=== PATIENT | male | born 1970 | race Caucasian/White ===

== ENCOUNTER 2017-05-18 23:02 | Emergency (ER) | payer OTHER ==
[2017-05-19 01:06] VITALS: BP 140/84
--- NOTE | 2017-05-19 12:19 | CR ---
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 RIGHT KNEE: Three views of the right knee revealed no evidence of a fracture, dislocation, or other definite bone or joint abnormality. [facility]
--- NOTE | 2017-05-19 12:19 | CR ---
INDICATION: Trauma to anterior proximal tibia. RIGHT TIBIA AND FIBULA: Frontal and lateral views of the right tibia and fibula revealed no evidence of an acute fracture, dislocation, or other definite bone or joint abnormality. [facility]
--- NOTE | 2017-05-19 12:20 | CR ---
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 Pain top of shoulder. RIGHT SHOULDER: Four views of the right shoulder were obtained and revealed minimal degenerative changes at the AC joint and very minimally at the glenohumeral joint. A fracture, dislocation, or other definite bone or joint abnormality was not identified. MTDD
--- NOTE | 2017-05-21 11:03 | ER ---
DATE SEEN: 05/18/2017 TIME SEEN: The patient was seen at 2300 hours. 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 No previous knee injury. He twisted his knee. Also, mild knee discomfort with the twist. The patient is overweight. He has lost 20 pounds in the last 2 months. He is working on his weight. 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 PAST MEDICAL HISTORY: He denies hypertension or other serious illnesses or surgery. ALLERGIES: Penicillin. MEDICATIONS: None. REVIEW OF SYSTEMS: Negative, except for noted above. PHYSICAL EXAMINATION: VITAL SIGNS: Blood pressure 146/94, heart rate 100, respirations 18, oxygen saturation 97%, and temperature is 36.8 degrees centigrade. GENERAL: The patient has a vest on. ABDOMEN: Nontender. No guarding. No abdominal discomfort. MUSCULOSKELETAL: Upper extremities negative. Lower extremities; right knee, no effusion, no pain to joint lines medially or laterally. He can flex and bend the knee, but it is painful for him, just below at the proximal tibia. The patient is overweight. DIAGNOSTIC STUDIES: X-ray does not reveal a fracture of the tibia. There is no indentation of the bone. No effusion to the knee. The knee has normal appearance. ASSESSMENT: Contusion, right anterior tibia. PLAN: Eight tablets of Vicodin prescribed. He is to use that for breakthrough pain if not taken care of by a 1000 mg of Tylenol, 5/325 mg of Vicodin. Follow up with his doctor on 05/20/2017. Gradually and progressively increase his activity as tolerated. Workmen's comp form filled out. Ice to his lower extremities. DIAGNOSES: 1. Contusion, right superior-anterior tibia without fracture. 2. Mild pain in the knee secondary to strain. 3. Obesity. 4. The patient is losing weight, working on his weight, and has lost 20 pounds in the last 2 months. /[id number] LS/MODL
== END 2017-05-19 00:35 | disposition home or self-care (01) ==
LOC: FB.ED 23:02
DX: S80.11XA Contusion of right lower leg, initial encounter (principal); X50.1XXA Overexertion from prolonged static or awkward postures, initial encounter; Y93.89 Activity, other specified; Y99.0 Civilian activity done for income or pay; Z88.0 Allergy status to penicillin
CPT/HCPCS: 73030-RT; 73562-RT; 73590-RT; 99283

== ENCOUNTER 2020-01-11 16:41 | Emergency (ER) | payer BC, OTHER ==
[2020-01-11] MEDS ORDERED: Aspirin 81 MG Tab.Chew PO ONE (17:05)
[2020-01-11] MEDS: Nitroglycerin 0.4 MG Tab.SL SL PRN ×2 (17:13→17:22)
[2020-01-11] MEDS ORDERED: Alum Hydroxide/Mag Hydroxide 15 ML, Lidocaine 2% 15 ML PO ONE ×2 (17:54)
--- NOTE | 2020-01-11 18:07 | EDM.PDOC ---
ED HPI GENERAL MEDICAL PROBLEM - General Chief Complaint: Chest Pain Stated Complaint: CHEST PAIN Time Seen by Provider: 01/11/20 16:45 Source of Information: Reports: Patient History Limitations: Reports: No Limitations - History of Present Illness INITIAL COMMENTS - FREE TEXT/NARRATIVE: Patient presented to the ED because of chest pain. The pain is sharp,2/10, over the left anterior chest. He had the ist episode last night at about 2030 and it lasted for 20 minutes. There is no nausea/vomiting/dyspnea. There is no associated fever/chills, cough or cold symptoms. He is otherwise healthy except for an PADMINI. - Related Data Allergies Allergy/AdvReac Type Severity Reaction Status Date / Time Penicillins Allergy Unknown unknown Verified 01/11/20 16:57 Home Meds: Home Meds Omeprazole 20 mg PO DAILY #30 tab 01/11/20 [Rx] Past Medical History - Past Health History Medical/Surgical History: Denies Medical/Surgical History HEENT History: Reports: Other (See Below) Other HEENT History: [place] teeth extraction. Respiratory History: Reports: Sleep Apnea Endocrine/Metabolic History: Reports: Obesity/BMI 30+ - Past Surgical History Musculoskeletal Surgical History: Reports: Other (See Below) Other Musculoskeletal Surgeries/Procedures:: Back surgery in 1987. Social & Family History - Family History Family Medical History: Noncontributory - Tobacco Use Tobacco Use Status *Q: Never Tobacco User - Caffeine Use Caffeine Use: Reports: Coffee - Recreational Drug Use Recreational Drug Use: No ED ROS GENERAL - Review of Systems Review Of Systems: See Below Constitutional: Reports: No Symptoms HEENT: Reports: No Symptoms Respiratory: Reports: No Symptoms Cardiovascular: Reports: Chest Pain Endocrine: Reports: No Symptoms GI/Abdominal: Reports: No Symptoms : Reports: No Symptoms Musculoskeletal: Reports: No Symptoms Skin: Reports: No Symptoms Neurological: Reports: No Symptoms Psychiatric: Reports: No Symptoms Hematologic/Lymphatic: Reports: No Symptoms ED EXAM, GENERAL - Physical Exam Exam: See Below Exam Limited By: No Limitations General Appearance: Alert, No Apparent Distress Ears: Normal External Exam, Normal Canal Nose: Normal Inspection, Normal Mucosa Throat/Mouth: Normal Inspection, Normal Lips, Normal Teeth Head: Atraumatic, Normocephalic Neck: Normal Inspection, Supple, Non-Tender Respiratory/Chest: No Respiratory Distress, Lungs Clear, Normal Breath Sounds Cardiovascular: Normal Peripheral Pulses, Regular Rate, Rhythm, No Edema, No Gallop, No JVD GI/Abdominal: Normal Bowel Sounds, Soft, Non-Tender Back Exam: Normal Inspection, Full Range of Motion Extremities: Normal Inspection, Normal Range of Motion, Non-Tender Neurological: Alert, Oriented, CN II-XII Intact Psychiatric: Normal Affect, Normal Mood Skin Exam: Warm Course - Vital Signs Text/Narrative:: Labs/EKG/CXR result was discussed with patient ASA 32 mg po x1 NTG 0.4 mg X2 GI cocktail Last Recorded V/S: Last Vital Signs Temp 36.8 C 01/11/20 16:41 Pulse 71 01/11/20 18:44 Resp 20 01/11/20 18:44 BP 133/79 01/11/20 18:44 Pulse Ox 98 01/11/20 18:44 - Orders/Labs/Meds Orders: Active Orders 24 hr Category Date Time Status EKG 12 Lead [EK] Routine Ther 01/11/20 17:04 Ordered Labs: Laboratory Tests 01/11/20 01/11/20 01/11/20 Range/Units 16:55 16:55 16:55 WBC 11.5 (4.5-12.0) X10-3/uL RBC 4.80 (4.30-5.75) x10(6)uL Hgb 14.9 (13.5-17.8) g/dL Hct 44.1 (30.0-51.3) % MCV 91.8 (80-96) fL MCH 31.0 (27.7-33.6) pg MCHC 33.8 (32.2-35.4) g/dL RDW 12.0 (11.5-15.5) % Plt Count 260 (125-369) X10(3)uL MPV 9.5 (7.4-10.4) fL Neut % (Auto) 69.3 (46-82) % Lymph % (Auto) 20.1 (13-37) % [place] % (Auto) 9.5 (4-12) % Eos % (Auto) 1 (1.0-5.0) % Baso % (Auto) 0 (0-2) % Neut # (Auto) 8.0 (1.6-8.3) # Lymph # (Auto) 2.3 (0.6-5.0) # [place] # (Auto) 1.1 (0.0-1.3) # Eos # (Auto) 0.1 (0.0-0.8) # Baso # (Auto) 0.0 (0.0-0.2) # PT 10.4 (9.0-11.1) sec INR 0.96 L (1.00-1.24) APTT 22.7 L (24.4-33.2) SECONDS D-Dimer, Quantitative (0.0-0.59) mg/LFEU Sodium 139 (135-145) mmol/L Potassium 4.2 (3.5-5.3) mmol/L Chloride 102 (100-110) mmol/L Carbon Dioxide 27 (21-32) mmol/L BUN 17 (7-18) mg/dL Creatinine 1.0 (0.70-1.30) mg/dL Est Cr Clr Drug Dosing 95.92 mL/min Estimated GFR (MDRD) > 60 (>60) BUN/Creatinine Ratio 17.0 (9-20) Glucose 107 (80-116) mg/dL Calcium 9.2 (8.6-10.2) mg/dL Total Bilirubin 0.5 (0.1-1.3) mg/dL AST 23 (5-25) IU/L ALT 34 (12-36) U/L Alkaline Phosphatase 52 L (56-112) IU/L Troponin I (4.0-60.3) pg/mL Total Protein 7.7 (6.0-8.0) g/dL Albumin 3.8 (3.5-5.2) g/dL Globulin 3.9 g/dL Albumin/Globulin Ratio 1.0 01/11/20 01/11/20 01/11/20 Range/Units 16:55 16:55 18:40 WBC (4.5-12.0) X10-3/uL RBC (4.30-5.75) x10(6)uL Hgb (13.5-17.8) g/dL Hct (30.0-51.3) % MCV (80-96) fL MCH (27.7-33.6) pg MCHC (32.2-35.4) g/dL RDW (11.5-15.5) % Plt Count (125-369) X10(3)uL MPV (7.4-10.4) fL Neut % (Auto) (46-82) % Lymph % (Auto) (13-37) % [place] % (Auto) (4-12) % Eos % (Auto) (1.0-5.0) % Baso % (Auto) (0-2) % Neut # (Auto) (1.6-8.3) # Lymph # (Auto) (0.6-5.0) # [place] # (Auto) (0.0-1.3) # Eos # (Auto) (0.0-0.8) # Baso # (Auto) (0.0-0.2) # PT (9.0-11.1) sec INR (1.00-1.24) APTT (24.4-33.2) SECONDS D-Dimer, Quantitative 0.37 (0.0-0.59) mg/LFEU Sodium (135-145) mmol/L Potassium (3.5-5.3) mmol/L Chloride (100-110) mmol/L Carbon Dioxide (21-32) mmol/L BUN (7-18) mg/dL Creatinine (0.70-1.30) mg/dL Est Cr Clr Drug Dosing mL/min Estimated GFR (MDRD) (>60) BUN/Creatinine Ratio (9-20) Glucose (80-116) mg/dL Calcium (8.6-10.2) mg/dL Total Bilirubin (0.1-1.3) mg/dL AST (5-25) IU/L ALT (12-36) U/L Alkaline Phosphatase (56-112) IU/L Troponin I 4.0 4.9 (4.0-60.3) pg/mL Total Protein (6.0-8.0) g/dL Albumin (3.5-5.2) g/dL Globulin g/dL Albumin/Globulin Ratio Meds: Medications Discontinued Medications Generic Name Dose Route Start Last Admin Trade Name Freq PRN Reason Stop Dose Admin Aspirin 324 mg 01/11/20 17:05 01/11/20 17:07 Aspirin PO 01/11/20 17:06 324 mg ONETIME ONE Administration Al Hydroxide/Mg Hydroxide 15 0 ml 01/11/20 17:54 01/11/20 18:13 ml/ Lidocaine HCl 15 ml PO 10/13/20 17:55 30 ml ONETIME ONE Administration Nitroglycerin 0.4 mg 01/11/20 17:13 01/11/20 17:22 Nitrostat SL 0.4 mg Q5M PRN Administration Chest Pain Departure - Departure Time of Disposition: 19:35 Disposition: Home, Self-Care 01 Condition: Good Clinical Impression: Chest pain, GERD (gastroesophageal reflux disease) Prescriptions: Omeprazole 20 mg PO DAILY #30 tab.rap.dr Instructions: Food Choices for Gastroesophageal Reflux Disease, Adult, Nonspecific Chest Pain, Adult Referrals: PCP,None [Ordering Only Provider] - Forms: ED Department Discharge Additional Instructions: Please read discharge instructions on chest pain and GERD?Acid Reflux Take omeprazole 20 mg daily for GERD/Acid Reflux Follow up with your doctor in a week Sepsis Event Note (ED) - Evaluation Sepsis Screening Result: No Definite Risk - My Orders Last 24 Hours: My Active Orders 01/11/20 17:04 EKG 12 Lead [EK] Routine - Assessment/Plan Last 24 Hours: My Active Orders 01/11/20 17:04 EKG 12 Lead [EK] Routine
[2020-01-11 18:46] VITALS: BP 133/79; PULSE 71
--- NOTE | 2020-01-11 18:54 | CR ---
INDICATION: Chest pain CHEST, ONE VIEW: An AP upright portable view of the chest was obtained 01/11/20 - no comparison. The heart appears generous in size but is not grossly enlarged. It is emphasized by the poor inspiration and AP positioning. Overlying EKG leads are noted. The aorta is tortuous. A definite active infiltrate or effusion was not identified. Evidence of exogenous obesity is noted. IMPRESSION: No acute process. MTDD
== END 2020-01-11 19:50 | disposition home or self-care (01) ==
LOC: FB.ED 16:41
DX: K21.9 Gastro-esophageal reflux disease without esophagitis (principal); E66.9 Obesity, unspecified; Z68.41 Body mass index [BMI] 40.0-44.9, adult; Z79.899 Other long term (current) drug therapy
CPT/HCPCS: 36415; 71045; 80053; 84484; 85025; 85379; 85610; 85730; 93005; 99285; A9270; 99284

== ENCOUNTER 2021-04-20 06:23 | Emergency (ER) | payer OTHER ==
[2021-04-20 07:45] VITALS: BP 116/71; PULSE 61
== END 2021-04-20 08:11 | disposition home or self-care (01) ==
LOC: FB.ED 06:23
DX: F41.9 Anxiety disorder, unspecified (principal); I10 Essential (primary) hypertension; E66.9 Obesity, unspecified; Z68.41 Body mass index [BMI] 40.0-44.9, adult; Z88.0 Allergy status to penicillin; Z79.899 Other long term (current) drug therapy
CPT/HCPCS: 36415; 80048; 85025; 99284

== ENCOUNTER 2022-06-03 15:15 | Emergency (ER) | payer OTHER ==
[2022-06-03] MEDS ORDERED: Sodium Chloride 0.9% 1,000 ML IV ONE (15:38)
[2022-06-03 15:45] VITALS: BP 157/82; PULSE 88
[2022-06-03 16:12] LABS: ESTIMATED GFR 102 mL/min (>60)
[2022-06-03 16:53] LABS: CORONAVIRUS COVID-19 NAA POSITIVE (NEGATIVE)
== END 2022-06-03 18:17 | disposition home or self-care (01) ==
LOC: FB.ED 15:15
DX: U07.1 COVID-19 (principal); E66.9 Obesity, unspecified; Z68.41 Body mass index [BMI] 40.0-44.9, adult; Z88.0 Allergy status to penicillin; Z79.899 Other long term (current) drug therapy
CPT/HCPCS: 0241U; 36415; 80053; 81001; 84484; 85025; 85379; 86140; 93005; 93010; 96360; 99284; 99284-25; J7030

== ENCOUNTER 2022-08-04 12:32 | Emergency (ER) | payer OTHER ==
[2022-08-04 13:32] LABS: BASOPHILS ABSOLUTE AUTO 0.1 x10-3/uL (0.0-0.3); BASOPHILS PERCENT AUTO 0.5 % (0.3-3.8); EOSINOPHILS PERCENT AUTO 0.4 % (0.1-6.8); HEMATOCRIT 43.1 % (38.3-50.1); HEMOGLOBIN 14.6 g/dL (12.9-17.7); LYMPHOCYTES ABSOLUTE AUTO 1.3 x10-3/uL (0.5-4.5); LYMPHOCYTES PERCENT AUTO 12.8 % (15.8-45.3); MEAN CORPUSCULAR HEMOGLOBIN 30.9 pg (27.0-33.3); MEAN CORPUSCULAR HGB CONC 33.7 g/dL (28.7-35.3); MEAN CORPUSCULAR VOLUME 91.7 fL (80.8-98.7); MEAN PLATELET VOLUME 9.2 fL (6.7-11.0); MONOCYTES ABSOLUTE AUTO 0.9 x10-3/uL (0.0-1.2); MONOCYTES PERCENT AUTO 9.3 % (5.5-15.2); NEUTROPHILS ABSOLUTE AUTO 7.6 x10-3/uL (1.7-6.9); PLATELET COUNT,PLT 242 x10(3)uL (117-477); RED CELL DISTRIBUTION WIDTH 12.6 % (12.4-15.0); WHITE BLOOD CELL COUNT,WBC 9.9 x10-3/uL (3.2-10.1)
[2022-08-04 13:40] LABS: EST CRCL DRUG DOSING (CG) 104.19 mL/min; ESTIMATED GFR 102 mL/min (>60); POTASSIUM,K 4.2 mmol/L (3.5-5.3)
[2022-08-04 13:42] LABS: APPEARANCE,URINE CLEAR (CLEAR); BACTERIA,URINE FEW (NS); BILIRUBIN,URINE NEGATIVE (NEGATIVE); COLOR,URINE YELLOW (YELLOW); GLUCOSE,URINE NORMAL (NORMAL); KETONES,URINE NEGATIVE (NEGATIVE); LEUKOCYTE ESTERASE,URINE NEGATIVE (NEGATIVE); NITRITE,URINE NEGATIVE (NEGATIVE); OCCULT BLOOD,URINE NEGATIVE (NEGATIVE); PROTEIN,URINE NEGATIVE (NEGATIVE); RBC,URINE 0-5 (0-5); SQUAMOUS EPITHELIAL CELLS,UR FEW (NS,R,O); UROBILINOGEN,URINE NORMAL (NEGATIVE); WBC,URINE 0-5 (0-5)
[2022-08-04 13:47] LABS: BLOOD UREA NITROGEN,BUN 22 mg/dL (7-18); BUN/CREATININE RATIO 24.4 (9-20); CALCIUM 8.9 mg/dL (8.6-10.2); CARBON DIOXIDE,CO2 25 mmol/L (21-32); CHLORIDE,CL 104 mmol/L (100-110); CREATININE 0.9 mg/dL (0.70-1.30); GLUCOSE RANDOM 112 mg/dL (80-116); SODIUM,NA 138 mmol/L (135-145)
[2022-08-04 13:52] LABS: ALANINE AMINOTRANSFERASE,ALT 37 U/L (12-36); ALBUMIN 3.7 g/dL (3.5-5.2); ALKALINE PHOSPHATASE 58 IU/L (56-112); ASPARTATE AMNIOTRANSFERASE,AST 26 IU/L (5-25); BILIRUBIN TOTAL 0.3 mg/dL (0.1-1.3); PROTEIN TOTAL,TP 7.6 g/dL (6.0-8.0)
[2022-08-04 15:28] VITALS: BP 130/75; PULSE 76
== END 2022-08-04 15:16 | disposition home or self-care (01) ==
LOC: FB.ED 12:32
DX: B34.9 Viral infection, unspecified (principal); E66.9 Obesity, unspecified; Z68.41 Body mass index [BMI] 40.0-44.9, adult; Z88.0 Allergy status to penicillin; Z79.899 Other long term (current) drug therapy
CPT/HCPCS: 36415; 80053; 81001; 82947; 83735; 85025; 86140; 99284